=== PATIENT | female | born 1945 | race Caucasian/White ===

== ENCOUNTER → 2021-06-01 13:27 | Outpatient (CLI) | payer MEDICARE, SELFPAY ==
--- NOTE | ~2021-06-01 | MM_ITS ---
EXAMINATION: MM screening [facility] BI w [place] HISTORY: Screening mammogram TECHNIQUE: Craniocaudal and mediolateral oblique 3-D tomosynthesis images were obtained and synthetic 2-D images were generated. CAD analysis was submitted and interpreted. COMPARISON: 02/11/2014, 07/12/2012 bilateral digital screening mammogram examinations BREAST PARENCHYMAL COMPOSITION: The breasts are heterogeneously dense, which may obscure small masses . FINDINGS: There are scattered benign-appearing calcifications throughout both breasts. There is one subtle cluster of grouped indeterminate microcalcifications in the upper right breast on MLO view, apparently in the posterior upper outer quadrant. Diagnostic mammogram with magnification views is recommended for better definition. Possible 5 mm mass in the lower outer right breast (MLO Tomosynthesis image 14/58); right breast ultr asound examination is recommended. There is otherwise no evidence of suspicious mass, calcification, or architectural distortion to sugg est malignancy in either breast. There has been no suspicious interval change. IMPRESSION: 1. Indeterminate cluster of grouped microcalcifications in upper right breast, apparently upper outer quadrant 2. Possible 5 mm mass in the lower outer right breast 3. Diagnostic right mammogram and right breast ultrasound examination are recommended BI-RADS Category 0: Incomplete: Needs additional imaging evaluation. Reviewed, dictated and finalized at location A. IMPRESSION: 1. Indeterminate cluster of grouped microcalcifications in upper right breast, apparently upper outer quadrant 2. Possible 5 mm mass in the lower outer right breast 3. Diagnostic right mammogram and right breast ultrasound examination are recom mended BI-RADS Category 0: Incomplete: Needs additional imaging evaluation.
== END ==
PROVIDERS: PCP Internal Medicine; Visit Provider Nurse Practitioner
DX: Z12.31 Encounter for screening mammogram for malignant neoplasm of breast (principal); R92.8 Other abnormal and inconclusive findings on diagnostic imaging of breast
CPT/HCPCS: 77063; 77067

== ENCOUNTER 2021-06-21 12:18 | Outpatient (CLI) | payer MEDICARE, SELFPAY ==
--- NOTE | ~2021-06-21 | MMUS_ITS ---
EXAMINATION: MM diagnostic [facility] RT w [place], US breast RT limited HISTORY: Follow-up right breast calcifications and mass TECHNIQUE: Additional 3-D tomosynthesis images of the right breast were performed and synthetic 2-D i mages were generated. CAD analysis was submitted and interpreted. High resolution Limited right breas t ultrasound was performed. COMPARISON: 06/01/2021 BREAST PARENCHYMAL COMPOSITION: The breasts are heterogenously dense, which may obscure small masses. FINDINGS: MAMMOGRAPHIC FINDINGS: There are benign-appearing right breast calcifications. No suspicious cluster of calcifications to garcía ggest malignancy. No discrete mass is identified. No architectural distortion. ULTRASOUND: Right breast ultrasound: At 8:00, 3 cm from the nipple, there is a 6 mm simple cyst. No suspicious so lid masses to suggest malignancy. IMPRESSION: 1. No evidence for malignancy in the right breast. Benign findings. 2. Routine yearly screening mammogram and regular clinical breast examination are recommended. BI-RADS Category 2: Benign finding(s). Reviewed, dictated and finalized at location A. IMPRESSION: 1. No evidence for malignancy in the right breast. Benign findings. 2. Routine yearly screening mammogram and regular clinical breast examination a re recommended. BI-RADS Category 2: Benign finding(s).
== END 2021-06-21 12:19 | disposition home or self-care (01) ==
LOC: ANHIMG 12:21
PROVIDERS: PCP Internal Medicine; Visit Provider Nurse Practitioner
DX: N60.01 Solitary cyst of right breast (principal)
CPT/HCPCS: 76642; 77061; 77065; G0279

== ENCOUNTER 2021-11-21 00:11 | Day surgery (SDC) | payer MEDICARE, SELFPAY ==
[2021-11-06 13:42] VITALS: BMI 24.0
[2021-11-21 08:16] VITALS: BP 150/70; PULSE 100; RESP 16; TEMP 36.4; O2SAT 97
[2021-11-21] MEDS: LACTATED RINGERS 1,000 ML 150 ML IV CONT (08:26)
--- NOTE | 2021-11-21 08:49 | P.PNAN_ITS ---
Anes - Initial Pre Proc Eval Procedure: Operation Date: 11/21/21 09:30 Proposed Procedures p Screening Colonoscopy - Evans Lazcano MD Date/Time: 11/21/21 08:49 Surgeon: Evans Lazcano MD Pre Op Diagnosis: neoplasm screening Patient Data Age: 76 Gender: F Height: 1.7 m Weight: 67 kg Last Vital Signs Temp 97.5 F L 11/21/21 08:16 Pulse 100 11/21/21 08:16 Resp 16 11/21/21 08:16 BP 150/70 H 11/21/21 08:16 Pulse Ox 97 11/21/21 08:16 Allergies Allergy/AdvReac Type Severity Reaction Status Date / Time No Known Allergies Allergy Verified 11/21/21 08:14 Home Medications Medication Instructions Recorded Confirmed Type aspirin 81 mg tablet,delayed 81 mg PO DAILY 10/20/19 11/06/21 History release folic acid 1 mg tablet 1 mg PO DAILY 10/20/19 11/06/21 History methotrexate sodium 2.5 mg tablet 10 mg PO WEEKLY tablet 10/21/19 11/06/21 History prednisone 2 mg tablet,delayed 2 mg PO DAILY 10/21/19 11/06/21 History release abatacept (with maltose) 250 mg 750 mg IVPB .COMPLEX each 06/07/21 11/06/21 History intravenous solution alprazolam 0.25 mg tablet 0.25 mg PO TID PRN #90 tablet 11/14/21 11/21/21 Rx bupropion HCl 150 mg 24 hr tablet, See Rx Instructions .ROUTE 11/14/21 11/21/21 Rx extended release .COMPLEX #90 tablet Patient hx anesthesia problems: none Family hx anesthesia problems: none Results Review: All pre-operative results and documents have been reviewed as part of the pre-operative evaluation. [facility] Past Medical History Medical History (Updated 11/21/21 @ 08:46 by Tom Cortes MD) Anxiety Rheumatoid arthritis with rheumatoid factor of unspecified site without organ or systems involvement Thalassemia, unspecified Family History Family History Mother Family history of rheumatoid arthritis Family history of congestive heart failure Sibling Carcinoma of colon Father Family history of congestive heart failure Social History Social History (Updated 06/07/21 @ 07:09 by Peggy Cortes MA) Smoking packs per day: 1 Smoking cigarettes per day: 20.0 Years smoked: 5 Smoking pack-years: 5.00 Smoking status: Former smoker Second hand tobacco smoke exposure: No Smoking end date: 09/23/81 Alcohol intake: never Substance use: never Living arrangements: alone Spiritual care concerns: No Anes - Eval Final PreProcedure Day of Procedure 11/21/21 08:49 Patient weight: normal Heart: regular rate and rhythm Lungs: clear to auscultation Airway: Mallampati scale class II Neurological: alert and oriented Last oral intake: >/= 8 hours ASA classification: II Emergent: no Anesthetic plan: proceed Anesthesia type and monitoring: general GIVS and standard monitoring Results Review: All pre-operative results and documents have been reviewed as part of the pre-operative evaluation. Informed Consent: The patient's anesthetic plan and its attendant risks and benefits were discussed with the patient/family/POA. Questions were solicited and answers provided to the satisfaction of the patient/family/POA.
--- NOTE | 2021-11-21 09:23 | PM.HPGS ---
History of Present Illness History of Present Illness Consent: Risks, benefits, and alternatives have been discussed and questions answered. Patient agrees to proceed with procedure. Chief complaint: neoplasm screening Narrative: Gifty Tatum is a 76 year old female with last colonoscopy ~ 4 years ago, sister had colon cancer. Review of Systems Constitutional: Constitutional: Denies headache(s) and Denies weakness Eyes: Eyes: Denies blurry vision ENT: Reports Normal hearing present, Denies headache(s) and Denies neck pain Cardiovascular: Cardiovascular: Denies chest pain and Denies dyspnea Respiratory: Respiratory: Denies dyspnea Gastrointestinal: Gastrointestinal: Reports no additional gastrointestinal complaints Genitourinary: Genitourinary: Denies dysuria Musculoskeletal: Musculoskeletal: Denies neck pain Integumentary/Breasts: Skin/Breast: Denies dry skin Neurologic: Reports Normal hearing present, Denies headache(s) and Denies weakness Psychiatric: Psychiatric: Denies anxiety Endocrine: Endocrine: Denies change in body appearance Hematologic/Lymphatic: Hematologic/Lymphatic: Denies easy bleeding Allergic/Immunologic: Allergic/Immunologic: Denies urticaria PMF Past Medical History Medical History (Updated 11/21/21 @ 09:23 by Evans Lazcano MD) Anxiety Family history of colon cancer Rheumatoid arthritis with rheumatoid factor of unspecified site without organ or systems involvement Thalassemia, unspecified Family History Family History Mother Family history of rheumatoid arthritis Family history of congestive heart failure Sibling Carcinoma of colon Father Family history of congestive heart failure Social History Social History (Updated 06/07/21 @ 07:09 by Peggy Cortes MA) Smoking packs per day: 1 Smoking cigarettes per day: 20.0 Years smoked: 5 Smoking pack-years: 5.00 Smoking status: Former smoker Second hand tobacco smoke exposure: No Smoking end date: 09/23/81 Alcohol intake: never Substance use: never Living arrangements: alone Spiritual care concerns: No Meds Home Medications and Allergies Home Medications Medication Instructions Recorded Confirmed Type aspirin 81 mg tablet,delayed 81 mg PO DAILY 10/20/19 11/06/21 History release folic acid 1 mg tablet 1 mg PO DAILY 10/20/19 11/06/21 History methotrexate sodium 2.5 mg tablet 10 mg PO WEEKLY tablet 10/21/19 11/06/21 History prednisone 2 mg tablet,delayed 2 mg PO DAILY 10/21/19 11/06/21 History release abatacept (with maltose) 250 mg 750 mg IVPB .COMPLEX each 06/07/21 11/06/21 History intravenous solution alprazolam 0.25 mg tablet 0.25 mg PO TID PRN #90 tablet 11/14/21 11/21/21 Rx bupropion HCl 150 mg 24 hr tablet, See Rx Instructions .ROUTE 11/14/21 11/21/21 Rx extended release .COMPLEX #90 tablet Allergies Allergy/AdvReac Type Severity Reaction Status Date / Time No Known Allergies Allergy Verified 11/21/21 08:14 Vital Signs Vital Signs - 24 hr 11/21/21 08:16 Temperature 97.5 F L Pulse Rate 100 Respiratory Rate 16 Blood Pressure 150/70 H Pulse Oximetry 97 Exam Const: General: comfortable and no acute distress HENMT: General nose exam: Normal nares present Eyes: General: appearance normal, both eyes and all related structures Neck: Neck: no JVD Resp: Auscultation: clear to auscultation bilaterally Cardio: Rate: regular rate Rhythm: regular rhythm GI: Inspection: non-distended GI Palp: Yes Soft to palpation Skin: General skin exam: normal color Neuro: General: gait normal Speech: normal speech Extrem: General: normal to inspection Psych: Mental Status: mental status grossly normal Assessment and Plan Assessment and plan (1) Family history of colon cancer: Code(s): Z80.0 - Family history of malignant neoplasm of digestive organs Statu
[2021-11-21 09:59] VITALS: BP 142/60; PULSE 66; RESP 21; O2SAT 100
[2021-11-21 10:09] VITALS: BP 152/73; PULSE 76; RESP 21; O2SAT 100
[2021-11-21 10:19] VITALS: BP 165/72; PULSE 73; RESP 20; O2SAT 100
== END 2021-11-21 10:26 | disposition home or self-care (01) ==
PROVIDERS: PCP Internal Medicine; Visit Provider Internal Medicine Gastroenterology
PROC: 0DJD8ZZ Inspection of Lower Intestinal Tract, Via Natural or Artificial Opening Endoscopic (ICD-10-PCS; CPT 45378; principal; 2021-11-21 09:30)
DX: Z12.11 Encounter for screening for malignant neoplasm of colon (principal); D12.3 Benign neoplasm of transverse colon; Z80.0 Family history of malignant neoplasm of digestive organs; K57.30 Diverticulosis of large intestine without perforation or abscess without bleeding; K64.8 Other hemorrhoids; F41.9 Anxiety disorder, unspecified; M06.9 Rheumatoid arthritis, unspecified; D56.9 Thalassemia, unspecified; Z87.891 Personal history of nicotine dependence; Z79.82 Long term (current) use of aspirin
CPT/HCPCS: 45380; 88305; J2704; J7120

== ENCOUNTER 2023-05-08 09:15 | Outpatient (CLI) | payer MEDICARE, SELFPAY ==
--- NOTE | ~2023-05-08 | XR_ITS ---
EXAMINATION: XR knee RT 3V DATE: 05/08/2023 09:34 INDICATION: Right knee pain. TECHNIQUE: 3 views of right knee were obtained. COMPARISON: None. FINDINGS: Bone alignment is normal. No fracture. There is mild tricompartmental osteoarthritis charac terized by tiny marginal osteophytes. No joint space narrowing. There is a moderate-sized knee joint effusion. IMPRESSION: 1. Mild right knee osteoarthritis. 2. Moderate-sized right knee joint effusion. Reviewed, dictated and finalized at location A.
== END 2023-05-08 09:16 | disposition home or self-care (01) ==
PROVIDERS: PCP Family Medicine; Visit Provider Family Medicine
DX: M17.11 Unilateral primary osteoarthritis, right knee (principal); M25.461 Effusion, right knee
CPT/HCPCS: 73562

== ENCOUNTER 2023-09-03 09:40 | Outpatient (CLI) | payer MEDICARE, SELFPAY ==
--- NOTE | ~2023-09-03 | MM_ITS ---
EXAMINATION: MM screening [facility] BI w [place] HISTORY: Screening TECHNIQUE: Craniocaudal and mediolateral oblique 3-D tomosynthesis images were obtained and synthetic 2-D images were generated. CAD analysis was submitted and interpreted. COMPARISON: Comparison to multiple prior studies sequentially, with oldest reviewed study dated 02/11. BREAST PARENCHYMAL COMPOSITION: The breasts are heterogeneously dense, which may obscure small masses . FINDINGS: There is no evidence of suspicious mass, calcification, or architectural distortion to sugg est malignancy in either breast. There has been no suspicious interval change. IMPRESSION: 1. No mammographic evidence of malignancy. 2. Recommend routine screening mammography in one year. BI-RADS Category 1: Negative Reviewed, dictated and finalized at location A. [employer]
--- NOTE | ~2023-09-03 | DEXA_ITS ---
Bone Density Report Name: JEY ARMANDO Age: 78 Sex: Female Ethnicity: White Date of : 1945 Indication: postmenopausal; screening for osteoporosis; height loss; history of glucocorticoids; prior fracture; hysterectomy; rheumatoid arthritis; Referring Provider: CHRISTINA MCGUIRE Study: Bone densitometry was performed. Exam Date: September 03, 2023 Accession number: [id number] Bone Density: Region BMD T-score Z-score Classification AP Spine(L1-L4) 1.064 0.2 2.8 Normal Femoral Neck (Left) 0.672 -1.6 0.7 Osteopenia Total Hip (Left) 0.743 -1.6 0.4 Osteopenia Femoral Neck (Right) 0.627 -2.0 0.3 Osteopenia Total Hip (Right) 0.708 -1.9 0.1 Osteopenia Total Hip Mean 0.725 -1.8 0.3 Osteopenia World Health Organization criteria for BMD impression classify patients as: Normal (T-score at or above -1.0), Osteopenia (T-score between -1.0 and -2.5), or Osteoporosis (T-score at or below -2.5). 10-year Fracture Risk(1): Major Osteoporotic Fracture 37% Hip Fracture 13% Reported Risk Factors: [place] (), Neck BMD=0.627, BMI=22.4, previous fracture, glucocorticoids, rheumatoid arthritis (1) FRAX(R) Version 3.08. Fracture probability calculated for an untreated patient. Fracture probability may be lower if the patient has received treatment. Clinical Information Provided by Patient: Has had a low trauma fracture Has taken Glucocorticoids Has rheumatoid arthritis Has used the following medications: Calcium Has the following medical conditions: Hysterectomy Patient maximum height was 67.5 Menopause Age: 50 No regular weight bearing exercise Drinks caffeinated beverages Onset of menses at age 12 Number of children 1 Impression: The patient has low bone mass, based on the Right Femoral Neck T-score. The patient has an estimated ten-year risk of hip fracture of 13% and an estimated ten-year risk of major fracture of 37%, based on the WHO FRAX algorithm. The patient has risk factors, including: previous fracture, history of glucocorticoid therapy. Discussion: BONE DENSITY IS LOW AT ONE OR MORE SKELETAL SITES. THE PATIENT'S BMD AND CLINICAL RISK FACTORS CONTRIBUTE TO THIS PATIENT'S HIGH RISK OF FRACTURE. This patient's lowest T-score is low at one or more skeletal sites. It meets the World Health Organization's (WHO) criteria for ?low bone mass? (T-score between -1.0 and -2.5). The patient's 10-year risk of hip fracture and 10 year risk of a major osteoporotic fracture as calculated by FRAX exceeds the threshold where pharmacological therapy is recommended by the National Osteoporosis Foundation (NOF). However, all treatment decisions require clinical judgment and consideration of individual patient factors, including patient preferences, comorbidities, previous drug use, risk fac
== END 2023-09-03 09:41 | disposition home or self-care (01) ==
PROVIDERS: PCP Family Medicine; Visit Provider Family Medicine
DX: Z12.31 Encounter for screening mammogram for malignant neoplasm of breast (principal); M85.89 Other specified disorders of bone density and structure, multiple sites; Z78.0 Asymptomatic menopausal state
CPT/HCPCS: 77063; 77067; 77080